=== PATIENT | female | born 1970 | race Caucasian/White ===

== ENCOUNTER 2023-05-15 04:18 | Day surgery (SDC) | payer OTHER ==
[2023-05-12 11:58] VITALS: BMI 24.9
[2023-05-15 08:11] VITALS: TEMP 98
[2023-05-15 09:57] VITALS: BP 116/57; PULSE 69; RESP 18
== END 2023-05-15 09:55 | disposition home or self-care (01) ==
LOC: JASU-ENDO 04:18
PROVIDERS: ATTEND Internal Medicine Gastroenterology
PROC: 0DBL8ZX Excision of Transverse Colon, Via Natural or Artificial Opening Endoscopic, Diagnostic (ICD-10-PCS; 2023-05-15)
PROC: 0DBH8ZX Excision of Cecum, Via Natural or Artificial Opening Endoscopic, Diagnostic (ICD-10-PCS; principal; 2023-05-15 09:00)
DX: Z12.11 Encounter for screening for malignant neoplasm of colon (principal); D12.0 Benign neoplasm of cecum; D12.3 Benign neoplasm of transverse colon; K57.30 Diverticulosis of large intestine without perforation or abscess without bleeding; K59.89 Other specified functional intestinal disorders; Z86.010 Personal history of colon polyps
CPT/HCPCS: 88305-TC